=== PATIENT | male | born 1965 | race Caucasian/White ===

== ENCOUNTER 2016-11-22 06:10 | Day surgery (SDC) | payer BC ==
[2016-11-19 14:59] LABS: HEMATOCRIT 43.6 % (40.0-51.0); HEMOGLOBIN 15.1 g/dL (13.6-17.8)
[2016-11-19 15:08] LABS: BUN (BLOOD UREA NITROGEN) 12 MG/DL (6-23); CALCIUM, SERUM 9.3 MG/DL (8.5-10.4); CHLORIDE, SERUM 107 MMOL/L (96-112); CO2 (CARBON DIOXIDE) 28 MMOL/L (24-34); CREATININE 1.16 MG/DL (0.70-1.30); GFR AFRICAN AMERICAN 84 ML/MIN (>=60); GFR NON AFRICAN AMERICAN 73 ML/MIN (>=60); POTASSIUM, SERUM 4.2 MMOL/L (3.5-5.3); SODIUM, SERUM 138 MMOL/L (135-148)
[2016-11-19 15:09] LABS: GLUCOSE, SERUM 258 MG/DL (60-99)
[2016-11-21 08:47] LABS: BASOPHILS 0.8 %; BASOPHILS ABSOLUTE 0.05 10/3/uL (0.0-0.16); EOSINOPHILS 1.5 %; IMMATURE GRANULOCYTES 0.2 %; IMMATURE GRANULOCYTES ABSOLUTE 0.01 10/3/uL (0.0-0.11); LYMPHOCYTES 45.3 %; LYMPHOCYTES ABSOLUTE 2.93 10/3/uL (0.67-4.30); MANUAL DIFF NO %; MEAN CORPUS HGB CONC 34.2 g/dL (32.0-36.0); MEAN CORPUSCULAR HEMOGLOB 31.4 pg (26.0-34.0); MEAN CORPUSCULAR VOLUME 91.9 fL (80-100); MEAN PLATELET VOLUME 9.2 fL (9.2-13.0); MONOCYTES 11.6 %; MONOCYTES ABSOLUTE 0.75 10/3/uL (0.21-1.20); NEUTROPHILS 40.6 %; NEUTROPHILS ABSOLUTE 2.63 10/3/uL (2.02-8.40); PLATELET COUNT 207 10/3/uL (150-400); RBC DISTRIBUTION WIDTH 12.7 % (12.0-16.0); RED CELL COUNT 4.81 10/6/uL (4.7-6.1); RETICULOCYTE COUNT 1.6 % (0.5-2.5); RETICULOCYTE COUNT ABSOLUTE 77.4 10/3/uL (20.2-119.8); WHITE BLOOD CELLS 6.5 10/3/uL (4.5-10.5)
--- NOTE | ~2016-11-22 | OP ---
Record Of Operation [facility] [address] [place]. [address] NAME: KACI BANKS : 65 STATUS : REG [facility]#: [id number] AGE: 51 ADM/REG DATE : 11/22/16 MR#: [id number] REPORT SERV DATE: 11/22/16 DICTATED BY: MOIZ MARTELL DATE: 11/22/16 REPORT STATUS : Draft TRANSCRIBED BY: MODL DATE: 11/22/16 DATE OF PROCEDURE: PREOPERATIVE DIAGNOSES: 1. Right axillary bulky lymphadenopathy. 2. 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 3. Insulin-dependent diabetes mellitus. 4. History of lymphoma. 5. Obesity with a BMI of 31.5. POSTOPERATIVE DIAGNOSES: 1. Right axillary bulky lymphadenopathy. 2. 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 3. Insulin-dependent diabetes mellitus. 4. History of lymphoma. 5. Obesity with a BMI of 31.5. PROCEDURE: Right axillary lymph node biopsy with Pathology consult. OPERATIVE TECHNIQUE: The patient was brought to the operating room, placed on the table in supine position. He had preoperative IV antibiotics. He had sequential hose in place. He voided prior to procedure. He underwent general endotracheal anesthesia and was prepped and draped in sterile fashion with his right arm extended. Time-out was completed. Local anesthesia was instilled in the mid axilla for the proposed transverse incision site over the palpable deep bulky disease. The incision was made transversely with a 15 blade knife and carried down through the clavipectoral fascia. Beneath the muscular layer, there were deep axillary lymph nodes that were very bulky. One complete lymph node was excised in 2 pieces as it was encountered. It was carefully circumferentially dissected using electrocautery and blunt dissection. The base was thoroughly cauterized in light of the patient's need for anticoagulation and the bulky disease. FloSeal was placed into the wound. Prior to the FloSeal being placed, the wound was thoroughly irrigated. There was no evidence of any bleeding or lymphatic drainage. The subcutaneous tissues were then reapproximated using interrupted Vicryl sutures followed by running Monocryl subcuticular stitch and Dermabond. A pressure dressing was applied. Pathology was called at the time of the procedure and was comfortable with the amount of tissue sent for evaluation. A bone marrow biopsy will be performed per pathology. He tolerated this portion of the procedure well. MAGO/AKRLO Moiz Martell M.D. / [id number] Record Of [address] [address] NAME: KACI BANKS : 65 STATUS : [place] [facility] [place]#: [id number] AGE: 51 ADM/REG DATE : 11/22/16 MR#: [id number] REPORT SERV DATE: 11/22/16 DICTATED BY: MOIZ MARTELL DATE: 11/22/16 REPORT STATUS : Draft TRANSCRIBED BY: KARLO DATE: 11/22/16 CC: Hanna Smith M.D.
[~2016-11-22 06:10] MED LIST: APPLE CIDER VINEGAR; B COMPLETE PO; ELIQUIS 5 MG TAB5 MG PO; FISH-EPA1000 MG PO; FLAXSEED OIL1000 MG PO; IBU-200200 MG PO; LEVEMFLXPN SC; MUCINEX1200 MG PO; NOVOLOG SC; TURMERIC; VITAMIN D31000 UNIT PO; VITAMIN D400 UNI1 PO; ZOCOR20 PO
== END 2016-11-22 17:44 | disposition home or self-care (01) ==
LOC: SDC 06:10
PROVIDERS: Pathology Cytopathology; Surgery
PROC: 07B50ZX Excision of Right Axillary Lymphatic, Open Approach, Diagnostic (ICD-10-PCS; principal; 2016-11-22 07:45)
PROC: 07DR3ZX Extraction of Iliac Bone Marrow, Percutaneous Approach, Diagnostic (ICD-10-PCS; 2016-11-22 07:45)
DX: C83.04 Small cell B-cell lymphoma, lymph nodes of axilla and upper limb (principal); I10 Essential (primary) hypertension; E11.9 Type 2 diabetes mellitus without complications; E66.9 Obesity, unspecified; R59.0 Localized enlarged lymph nodes; E78.00 Pure hypercholesterolemia, unspecified; Z86.718 Personal history of other venous thrombosis and embolism; Z68.31 Body mass index [BMI] 31.0-31.9, adult
CPT/HCPCS: 80048; 82962; 85014; 85018; 85025; 85045; 88305; 88307; 88311; 88313; 88331; 88341; 88342; 93005; J0690; J2250; J2405; J3010